=== PATIENT | female | born 1950 | race Caucasian/White ===

== ENCOUNTER 2024-08-09 13:51 | Outpatient (CLI) | payer MEDICARE | END 2024-08-09 13:52 | disposition home or self-care (01) | LOC: CT 13:51 | PROVIDERS: ATTEND Internal Medicine Hematology & Oncology | DX: C50.811 Malignant neoplasm of overlapping sites of right female breast (principal); R30.0 Dysuria; D70.8 Other neutropenia; N63.10 Unspecified lump in the right breast, unspecified quadrant; R59.0 Localized enlarged lymph nodes; R23.4 Changes in skin texture | CPT/HCPCS: 36415; 71260; 74177; 82565 ×2; J1642 ==